=== PATIENT | male | born 1990 ===

== ENCOUNTER 2022-09-21 13:40 | Emergency (ER) | payer MEDICAID, OTHER ==
[~2022-09-21] VITALS: Ht 175.3 cm; Wt 120.0 kg
[2022-09-21] MEDS ORDERED: IBUP-2029 MT (15:18)
[2022-09-21] MEDS ORDERED: BENZ1LOZ73 MT (15:18)
[2022-09-21 15:29] VITALS: BP 151/100
== END 2022-09-21 15:33 | disposition home or self-care (01) ==
LOC: ER 13:40
DX: J02.8 Acute pharyngitis due to other specified organisms (principal)
CPT/HCPCS: 99282